=== PATIENT | male | born 1980 | race Caucasian/White ===

== ENCOUNTER 2019-05-22 23:46 | Emergency (ER) | payer SELFPAY ==
[~2019-05-22] VITALS: Ht 182.9 cm; Wt 72.6 kg
[2019-05-23 00:40] LABS: Basophils # (auto) 0 uL; Basophils % (auto) 0.3 % (0.0-2.0); Eosinophils # (auto) 0.3 uL; Eosinophils % (auto) 2.6 % (0.0-7.0); Hematocrit 46.1 % (41.0-53.0); Hemoglobin 15.3 g/dL (13.5-17.5); Lymphocytes # (auto) 4.3 uL; Lymphocytes % (auto) 38.1 % (10.0-50.0); Mean Corpuscular Hemoglobin 29.4 pg (28.0-32.0); Mean Corpuscular Hgb Conc. 33.2 g/dL (32.0-36.0); Mean Corpuscular Volume 88.4 fL (80.0-100.0); Monocytes # (auto) 0.9 uL; Monocytes % (auto) 8.2 % (0.0-12.0); Neutrophils # (auto) 5.8 uL; Neutrophils % (auto) 50.8 % (37.0-80.0); Nucleated Red Blood Cells % 0.1 %; Platelet Count (auto) 344 10^3/uL (140-450); Red Blood Cells 5.22 10^6/uL (4.5-5.90); Red Cell Distribution Width 13.5 % (11.8-14.3); White Blood Cell 11.4 10^3/uL (4.4-10.8)
[2019-05-23 01:00] LABS: Albumin 3.8 g/dL (3.4-5.0); BUN/Creatinine Ratio 5.2; Calcium 8.6 mg/dL (8.5-10.1); Potassium 3.7 mmol/L (3.5-5.1)
[2019-05-23 01:03] LABS: Bilirubin, Total 0.4 mg/dL (0.2-1.0)
[2019-05-23 02:44] LABS: Amphetamine Screen, Urine POSITIVE (NEGATIVE); Barbiturate Scree,Urine NEGATIVE (NEGATIVE); Benzodiazephine Screen, Urine NEGATIVE (NEGATIVE); Cannabinoid Screen, Urine POSITIVE (NEGATIVE); Cocaine Screen, Urine NEGATIVE (NEGATIVE); Opiate Scree,Urine NEGATIVE (NEGATIVE); Phencyclidine Screen, Urine NEGATIVE (NEGATIVE)
[2019-05-23 02:46] LABS: Urine Bacteria NONE SEEN /hpf (None Seen); Urine Blood Negative /uL (Negative); Urine Hyaline Cast FEW /lpf (0 - 2); Urine Mucus FEW (None Seen); Urine Specific Gravity 1.018 (1.001-1.035); Urine WBC 5 /hpf (0 - 3)
[2019-05-23] MEDS ORDERED: THIAMINE INJ 100 MG in SODIUM CHLORIDE 0.9% 1,000 ML IV ONE (04:00)
[2019-05-23] MEDS ORDERED: SODIUM CHLORIDE 0.9% 1,000 ML IV ONE (04:00)
[2019-05-23 05:33] VITALS: BP 104/63
== END 2019-05-23 10:00 | disposition left against medical advice (07) ==
LOC: ER 23:46
DX: F32.9 Major depressive disorder, single episode, unspecified (principal); F10.920 Alcohol use, unspecified with intoxication, uncomplicated; F15.10 Other stimulant abuse, uncomplicated; Y90.0 Blood alcohol level of less than 20 mg/100 ml
CPT/HCPCS: 36415; 80053; 80307; 80320; 81001; 85025; 96365; 99283; J3411; J7030; 96361

== ENCOUNTER 2019-08-03 21:56 | Emergency (ER) | payer SELFPAY ==
[~2019-08-03] VITALS: Ht 185.4 cm; Wt 77.1 kg
[2019-08-03 22:14] VITALS: BP 122/74
[2019-08-03] MEDS ORDERED: LIDOCAINE 1% HCL (LOCAL ANESTH.) INJ 20ML MDV IJ ONE (22:45)
== END 2019-08-03 23:12 | disposition home or self-care (01) ==
LOC: ER 21:59
DX: S01.412A Laceration without foreign body of left cheek and temporomandibular area, initial encounter (principal); W01.198A Fall on same level from slipping, tripping and stumbling with subsequent striking against other object, initial encounter; Y93.01 Activity, walking, marching and hiking; Y92.820 Desert as the place of occurrence of the external cause; Y99.8 Other external cause status
CPT/HCPCS: 12013; 99283; J2001

== ENCOUNTER 2024-01-12 07:19 | Emergency (ER) | payer MEDICAID ==
[~2024-01-12] VITALS: Ht 185.4 cm; Wt 82.5 kg
[2024-01-12 08:15] VITALS: BP 120/81; PULSE 91; RESP 18; TEMP 97.9; O2SAT 96
[2024-01-12] MEDS: KETOROLAC TROMETH 60MG/2ML VIAL IM ONE (08:34)
== END 2024-01-12 09:41 | disposition home or self-care (01) ==
LOC: ER 07:19
DX: M54.16 Radiculopathy, lumbar region (principal); F41.9 Anxiety disorder, unspecified; F32.9 Major depressive disorder, single episode, unspecified; F15.90 Other stimulant use, unspecified, uncomplicated
CPT/HCPCS: 96372; 99283; J1885